=== PATIENT | male | born 1980 | race Caucasian/White ===

== ENCOUNTER 2020-11-14 04:00 | Emergency (ER) | payer SELFPAY ==
[~2020-11-14] VITALS: Ht 170.2 cm; Wt 73.0 kg
[2020-11-14] MEDS ORDERED: LIDOCAINE HCL/EPINEPHRINE 1%-EPI 1:100,000 20 ML VIAL INFIL ONE (04:45)
[2020-11-14] MEDS ORDERED: BACITRACIN ZINC OINT UDPKT TOP ONE (04:45)
[2020-11-14] MEDS ORDERED: TETANUS, DIPHTHERIA, PERTUSSIS VAC/PF 0.5ML (>7YR OLD) IM ONE (04:45)
[2020-11-14] MEDS ORDERED: ACET-2708 MT (05:54)
[2020-11-14] MEDS ORDERED: IBUPROFEN 400MG TABLET PO ONE (06:00)
[2020-11-14] MEDS ORDERED: ACETAMINOPHEN 325MG TABLET PO ONE (06:00)
[2020-11-14 06:01] VITALS: BP 133/94
[2020-11-14] MEDS ORDERED: CEPH500T MT (06:26)
== END 2020-11-14 06:49 | disposition home or self-care (01) ==
LOC: ER 04:53
DX: S01.01XA Laceration without foreign body of scalp, initial encounter (principal); L03.90 Cellulitis, unspecified; Y08.89XA Assault by other specified means, initial encounter; Y93.89 Activity, other specified; Y92.89 Other specified places as the place of occurrence of the external cause; Y99.8 Other external cause status; F15.10 Other stimulant abuse, uncomplicated
CPT/HCPCS: 12001; 70450; 72125; 90471; 90715; 99285; J3490; Z7610